=== PATIENT | female | born 1950 | race Hispanic/Latino ===

== ENCOUNTER 2020-10-27 09:17 | Emergency (ER) | payer OTHER ==
[~2020-10-27] VITALS: Ht 160 cm; Wt 78.9 kg
[2020-10-27 09:24] VITALS: BP 156/93
[2020-10-27] MEDS: SUMATRIPTAN SUCCINATE 6 MG/VIAL 0.5ML SQ SCH (11:00)
[2020-10-27] MEDS: SUMATRIPTAN SUCCINATE 6 MG/VIAL 0.5ML SQ ONE (11:18)
[2020-10-27 12:27] VITALS: BP 146/93
[2020-10-27] MEDS ORDERED: SUMA6PEN SQ (12:29)
== END 2020-10-27 12:35 | disposition home or self-care (01) ==
LOC: EDH 09:17
DX: G43.901 Migraine, unspecified, not intractable, with status migrainosus (principal); R11.2 Nausea with vomiting, unspecified
CPT/HCPCS: 96372; 99283; J3030

== ENCOUNTER 2020-11-02 14:42 | Inpatient (IN) | payer OTHER ==
[2020-11-02] VITALS (7 sets, daily range): BP systolic 129–176; BP diastolic 73–97
[~2020-11-02] VITALS: Ht 152.4 cm; Wt 75.6 kg
[~2020-11-02 14:42] MED LIST: SUMA6PEN SQ
[2020-11-02 15:22] LABS: HEMATOCRIT 38.6 % (36-48); MEAN CORPUSCULAR HGB CONC 34.2 g/dL (32.0-36.0); MEAN CORPUSCULAR VOLUME 90.6 fL (79-99); NUCLEATED RED BLOOD CELLS 0.3 % (0.0-0.19); PLATELET COUNT (AUTO) 370 K/uL (130-400); RED BLOOD CELL COUNT(AUTO) 4.26 MIL/uL (4.00-5.50); RED CELL DISTRIBUTION WIDTH 12.7 % (11.0-15.5); WHITE BLOOD COUNT (AUTO) 10.2 K/uL (4.8-10.8)
[2020-11-02 15:34] LABS: CREATININE 0.8 mg/dL (0.5-1.5); POTASSIUM 3.1 mmol/L (3.5-5.1)
[2020-11-02 15:39] LABS: ALBUMIN 2.2 g/dL (3.5-5.0); BILIRUBIN,TOTAL 0.8 mg/dL (0.2-1.0); TOTAL PROTEIN, SERUM 7.3 g/dL (6.0-8.3)
[2020-11-02 15:57] LABS: B-TYPE NATRIURETIC PEPTIDE 32 pg/mL (0-100)
[2020-11-02 16:00] LABS: BAND NEUTROPHILS % (MANUAL) 2 % (0-2); LYMPHOCYTES % (MANUAL) 12 % (22-44); MAN.DIFF COMMENT-IMPRESSION MANUAL DIFFERENTIAL; MONOCYTES % (MANUAL) 7 % (2-9); SEGMENTED NEUTROPHILS % 79 % (40-70)
[2020-11-02 16:01] LABS: PLATELET MORPHOLOGY COMMENT ADEQUATE
[2020-11-02 17:00] LABS: ABG HCO3 25.2 mmol/L (21.0-28.0); ABG OXYGEN SATURATION 91.3 % (95.0-99.0); ABG PCO2 32 mmHg (32-45)
[2020-11-02] MEDS ORDERED: MAG/ALUM/SIMETH 30 ML UDCUP PO PRN (18:00)
[2020-11-02] MEDS ORDERED: ACETAMINOPHEN 325 MG TAB PO PRN (18:00)
[2020-11-02] MEDS ORDERED: NITROGLYCERIN 0.4 MG SL TAB SL PRN (18:00)
[2020-11-02] MEDS ORDERED: ONDANSETRON 4MG INJ IV PRN (18:00)
[2020-11-02] MEDS ORDERED: POTASSIUM CHLORIDE 10% ELIXIR 20 MEQ/15 ML UDCUP PO PRN (18:00)
[2020-11-02] MEDS ORDERED: POTASSIUM CHLORIDE 20MEQ/100ML 100 ML IV PRN (18:00)
[2020-11-02] MEDS ORDERED: DIPHENHYDRAMINE HCL 25 MG CAPSULE PO PRN (18:00)
[2020-11-02] MEDS ORDERED: LACTULOSE 20 GM/30 ML UDCUP PO PRN (18:00)
[2020-11-02] MEDS ORDERED: HYDRALAZINE 20MG/ML VIAL IV PRN (18:00)
[2020-11-02] MEDS ORDERED: ACETAMINOPHEN WITH CODEINE 1 TAB TAB PO PRN (18:00)
[2020-11-02] MEDS ORDERED: GUAIFENESIN-DM 200/20 MG 10 ML PO PRN (18:00)
[2020-11-02] MEDS ORDERED: LIDOCAINE HCL-MPF 1% 2ML VIAL IV PRN (18:00)
[2020-11-02] MEDS: DOXYCYCLINE 100MG+NS 250ML IV SCH (18:00)
[2020-11-02 18:02] LABS: HEMOGLOBIN A1C 7.1 % (4.0-6.0)
[2020-11-02] MEDS ORDERED: PHARMACY COMMUNICATION***REMDESIVIR ORDER MISC SCH (18:30)
[2020-11-02] MEDS ORDERED: ALBUTEROL INHALER 90MCG/INH IH PRN (18:30)
[2020-11-02] MEDS: KCL 20 MEQ ERTAB PO PRN (18:51)
[2020-11-02] MEDS: CEFTRIAXONE 1G VIAL IVP SCH (19:03)
[2020-11-02] MEDS: DEXAMETHASONE SOD PHOSPHATE 4 MG/ML 1ML VIAL IVP SCH (19:03)
[2020-11-02] MEDS ORDERED: COMPOUND IV REFRIGERATED 1 EACH IVSOLN MISC PRN (19:30)
[2020-11-02] MEDS ORDERED: REMDESIVIR (EUA) 520 200 MG in 0.9% NACL 250ML 250 ML IV SCH (20:00)
[2020-11-02] MEDS: FAMOTIDINE 20MG VIAL IV SCH (21:20)
[2020-11-02] MEDS: OSELTAMIVIR PHOSPHATE 75 MG CAP PO SCH (21:20)
[2020-11-03 05:41] VITALS: BP 160/96
[2020-11-03 06:08] LABS: BASOPHILS % (AUTO) 0.3 % (0.0-5.0); HEMATOCRIT 38.6 % (36-48); LYMPHOCYTES % (AUTO) 10.3 % (21.0-51.0); MEAN CORPUSCULAR HEMOGLOBIN 30.9 pg (27.0-33.0); MEAN CORPUSCULAR HGB CONC 33.9 g/dL (32.0-36.0); NEUTROPHILS % (AUTO) 81.1 % (40.0-77.0); PLATELET COUNT (AUTO) 407 K/uL (130-400); RED BLOOD CELL COUNT(AUTO) 4.24 MIL/uL (4.00-5.50); RED CELL DISTRIBUTION WIDTH 12.8 % (11.0-15.5); WHITE BLOOD COUNT (AUTO) 9.2 K/uL (4.8-10.8)
[2020-11-03] MEDS: DOXYCYCLINE 100MG+NS 250ML IV SCH ×2 (06:22→17:39)
[2020-11-03] MEDS: CEFTRIAXONE 1G VIAL IVP SCH ×2 (06:22→17:38)
[2020-11-03 08:00] VITALS: BP 182/82
[2020-11-03] MEDS: ZINC SULFATE 220 CAPSULE PO SCH (08:27)
[2020-11-03] MEDS: OSELTAMIVIR PHOSPHATE 75 MG CAP PO SCH ×2 (08:27→20:16)
[2020-11-03] MEDS: ASCORBIC ACID 500 MG TAB PO SCH (08:27)
[2020-11-03] MEDS: FAMOTIDINE 20MG VIAL IV SCH ×2 (08:27→20:16)
[2020-11-03] MEDS ORDERED: ENOXAPARIN SODIUM 40 MG/0.4 ML SYRINGE SQ SCH (09:00)
[2020-11-03] MEDS ORDERED: AMLODIPINE 5 MG TAB PO ONE (10:30)
[2020-11-03] MEDS ORDERED: IOHEXOL 350 MG/ML 100ML INFUS..BTL IV ONE (10:34)
[2020-11-03] MEDS: AMLODIPINE 5 MG TAB PO SCH (11:33)
[2020-11-03 12:00] VITALS: BP 149/80
[2020-11-03 16:00] VITALS: BP 152/86
[2020-11-03] MEDS: ENOXAPARIN SODIUM 40 MG/0.4 ML SYRINGE SQ SCH ×2 (17:30→20:19)
[2020-11-03] MEDS: KCL 20 MEQ ERTAB PO PRN (17:38)
[2020-11-03] MEDS: DEXAMETHASONE SOD PHOSPHATE 4 MG/ML 1ML VIAL IVP SCH (17:38)
[2020-11-03] MEDS: BARICITINIB (EUA) 2 MG TABLET PO SCH (17:52)
[2020-11-03 20:00] VITALS: BP 162/94
[2020-11-03] MEDS: REMDESIVIR (EUA) 520 100 MG in 0.9% NACL 250ML 250 ML IV SCH (20:17)
[2020-11-04] VITALS (7 sets, daily range): BP systolic 152–177; BP diastolic 77–97
[2020-11-04] MEDS: KCL 20 MEQ ERTAB PO PRN ×2 (00:29→02:18)
[2020-11-04] MEDS: DOXYCYCLINE 100MG+NS 250ML IV SCH ×2 (05:03→17:04)
[2020-11-04] MEDS: CEFTRIAXONE 1G VIAL IVP SCH ×2 (05:03→17:04)
[2020-11-04 05:29] LABS: BASOPHILS % (AUTO) 0.3 % (0.0-5.0); HEMATOCRIT 39.7 % (36-48); LYMPHOCYTES % (AUTO) 13.7 % (21.0-51.0); MEAN CORPUSCULAR HEMOGLOBIN 30.4 pg (27.0-33.0); MEAN CORPUSCULAR HGB CONC 33.5 g/dL (32.0-36.0); MEAN CORPUSCULAR VOLUME 90.6 fL (79-99); MONOCYTES % (AUTO) 3.6 % (3.0-13.0); NEUTROPHILS % (AUTO) 78.1 % (40.0-77.0); PLATELET COUNT (AUTO) 415 K/uL (130-400); RED BLOOD CELL COUNT(AUTO) 4.38 MIL/uL (4.00-5.50); RED CELL DISTRIBUTION WIDTH 12.8 % (11.0-15.5); WHITE BLOOD COUNT (AUTO) 8.8 K/uL (4.8-10.8)
[2020-11-04 05:59] LABS: ALBUMIN 2.2 g/dL (3.5-5.0); BILIRUBIN,TOTAL 0.5 mg/dL (0.2-1.0); CREATININE 0.6 mg/dL (0.5-1.5); POTASSIUM 4.4 mmol/L (3.5-5.1); TOTAL PROTEIN, SERUM 7.2 g/dL (6.0-8.3)
[2020-11-04] MEDS: REMDESIVIR LABS MISC SCH (06:00)
[2020-11-04] MEDS: OSELTAMIVIR PHOSPHATE 75 MG CAP PO SCH ×2 (08:47→20:38)
[2020-11-04] MEDS: ENOXAPARIN SODIUM 40 MG/0.4 ML SYRINGE SQ SCH ×2 (08:47→20:40)
[2020-11-04] MEDS: ZINC SULFATE 220 CAPSULE PO SCH (08:47)
[2020-11-04] MEDS: ASCORBIC ACID 500 MG TAB PO SCH (08:47)
[2020-11-04] MEDS: BARICITINIB (EUA) 2 MG TABLET PO SCH (08:48)
[2020-11-04] MEDS: FAMOTIDINE 20MG VIAL IV SCH ×2 (08:48→20:38)
[2020-11-04] MEDS: AMLODIPINE 5 MG TAB PO SCH (08:48)
[2020-11-04] MEDS: INSULIN HUMULIN R 100 UNIT/ML 3ML SQ SCH ×3 (11:30→20:42)
[2020-11-04] MEDS: DEXAMETHASONE SOD PHOSPHATE 4 MG/ML 1ML VIAL IVP SCH (17:04)
[2020-11-04] MEDS: REMDESIVIR (EUA) 520 100 MG in 0.9% NACL 250ML 250 ML IV SCH (20:39)
[2020-11-05 03:47] VITALS: BP 150/76
[2020-11-05 05:06] LABS: BASOPHILS % (AUTO) 0.3 % (0.0-5.0); LYMPHOCYTES % (AUTO) 10.1 % (21.0-51.0); MEAN CORPUSCULAR HEMOGLOBIN 30.1 pg (27.0-33.0); MEAN CORPUSCULAR HGB CONC 33.3 g/dL (32.0-36.0); MEAN CORPUSCULAR VOLUME 90.5 fL (79-99); NEUTROPHILS % (AUTO) 80.2 % (40.0-77.0); PLATELET COUNT (AUTO) 458 K/uL (130-400); RED BLOOD CELL COUNT(AUTO) 4.42 MIL/uL (4.00-5.50); RED CELL DISTRIBUTION WIDTH 12.8 % (11.0-15.5); WHITE BLOOD COUNT (AUTO) 9.2 K/uL (4.8-10.8)
[2020-11-05] MEDS: DOXYCYCLINE 100MG+NS 250ML IV SCH (05:10)
[2020-11-05] MEDS: CEFTRIAXONE 1G VIAL IVP SCH (05:10)
[2020-11-05 05:22] LABS: ALBUMIN 2.4 g/dL (3.5-5.0); BILIRUBIN,TOTAL 0.5 mg/dL (0.2-1.0); CREATININE 0.6 mg/dL (0.5-1.5); CRP QUANTITATIVE 18.6 mg/L (0.00-9.0); POTASSIUM 4.2 mmol/L (3.5-5.1); TOTAL PROTEIN, SERUM 7.4 g/dL (6.0-8.3)
[2020-11-05] MEDS: REMDESIVIR LABS MISC SCH (05:47)
[2020-11-05] MEDS: INSULIN HUMULIN R 100 UNIT/ML 3ML SQ SCH ×4 (06:25→20:30)
[2020-11-05 08:24] VITALS: BP 159/93
[2020-11-05] MEDS: BARICITINIB (EUA) 2 MG TABLET PO SCH (09:14)
[2020-11-05] MEDS: OSELTAMIVIR PHOSPHATE 75 MG CAP PO SCH ×2 (09:14→20:17)
[2020-11-05] MEDS: ZINC SULFATE 220 CAPSULE PO SCH (09:14)
[2020-11-05] MEDS: ASCORBIC ACID 500 MG TAB PO SCH (09:14)
[2020-11-05] MEDS: FAMOTIDINE 20MG TAB PO SCH ×2 (09:14→20:17)
[2020-11-05] MEDS: AMLODIPINE 5 MG TAB PO SCH ×2 (09:15→11:30)
[2020-11-05] MEDS: ENOXAPARIN SODIUM 40 MG/0.4 ML SYRINGE SQ SCH ×2 (09:15→20:17)
[2020-11-05 11:47] VITALS: BP 162/86
[2020-11-05 16:02] VITALS: BP 153/88
[2020-11-05] MEDS: DEXAMETHASONE SOD PHOSPHATE 4 MG/ML 1ML VIAL IVP SCH (16:36)
[2020-11-05 19:23] VITALS: BP 131/56
[2020-11-05] MEDS: REMDESIVIR (EUA) 520 100 MG in 0.9% NACL 250ML 250 ML IV SCH (20:18)
[2020-11-05 23:33] VITALS: BP 137/76
[2020-11-06 03:44] VITALS: BP 147/83
[2020-11-06 04:59] LABS: BASOPHILS % (AUTO) 0.4 % (0.0-5.0); HEMATOCRIT 42.1 % (36-48); LYMPHOCYTES % (AUTO) 9.9 % (21.0-51.0); MEAN CORPUSCULAR HEMOGLOBIN 30.3 pg (27.0-33.0); MEAN CORPUSCULAR HGB CONC 33.5 g/dL (32.0-36.0); MEAN CORPUSCULAR VOLUME 90.5 fL (79-99); MONOCYTES % (AUTO) 4.8 % (3.0-13.0); NEUTROPHILS % (AUTO) 79.3 % (40.0-77.0); PLATELET COUNT (AUTO) 471 K/uL (130-400); RED BLOOD CELL COUNT(AUTO) 4.65 MIL/uL (4.00-5.50); RED CELL DISTRIBUTION WIDTH 12.8 % (11.0-15.5); WHITE BLOOD COUNT (AUTO) 9.8 K/uL (4.8-10.8)
[2020-11-06 05:28] LABS: ALBUMIN 2.4 g/dL (3.5-5.0); BILIRUBIN,TOTAL 0.5 mg/dL (0.2-1.0); CREATININE 0.7 mg/dL (0.5-1.5); CRP QUANTITATIVE 9.4 mg/L (0.00-9.0); POTASSIUM 4.4 mmol/L (3.5-5.1); TOTAL PROTEIN, SERUM 7.2 g/dL (6.0-8.3)
[2020-11-06] MEDS: REMDESIVIR LABS MISC SCH (05:49)
[2020-11-06] MEDS: INSULIN HUMULIN R 100 UNIT/ML 3ML SQ SCH ×4 (06:24→20:40)
[2020-11-06] MEDS: ASCORBIC ACID 500 MG TAB PO SCH (07:59)
[2020-11-06] MEDS: ENOXAPARIN SODIUM 40 MG/0.4 ML SYRINGE SQ SCH ×2 (07:59→20:34)
[2020-11-06] MEDS: OSELTAMIVIR PHOSPHATE 75 MG CAP PO SCH ×2 (07:59→20:33)
[2020-11-06] MEDS: ZINC SULFATE 220 CAPSULE PO SCH (07:59)
[2020-11-06] MEDS: FAMOTIDINE 20MG TAB PO SCH ×2 (07:59→20:33)
[2020-11-06] MEDS: AMLODIPINE 5 MG TAB PO SCH (07:59)
[2020-11-06] MEDS: BARICITINIB (EUA) 2 MG TABLET PO SCH (08:25)
[2020-11-06 09:06] VITALS: BP 115/92
[2020-11-06 11:30] VITALS: BP 161/90
[2020-11-06] MEDS ORDERED: AMLO-258 PO (14:53)
[2020-11-06] MEDS ORDERED: METF-444 PO (14:53)
[2020-11-06] MEDS ORDERED: APIX2.5T PO (14:53)
[2020-11-06] MEDS ORDERED: GLIP5TAB11 PO (14:53)
[2020-11-06] MEDS ORDERED: PANT40TA55 PO (14:53)
[2020-11-06] MEDS ORDERED: DEXA6TAB PO (14:53)
[2020-11-06] MEDS: DEXAMETHASONE SOD PHOSPHATE 4 MG/ML 1ML VIAL IVP SCH (17:29)
[2020-11-06] MEDS: REMDESIVIR (EUA) 520 100 MG in 0.9% NACL 250ML 250 ML IV SCH (18:09)
[2020-11-06 20:00] VITALS: BP 153/84
[2020-11-20] MEDS ORDERED: AMOX-429 PO (04:37)
== END 2020-11-06 21:30 | disposition home or self-care (01) | DRG 177 ==
LOC: EDH 14:42 → EDHIP 14:43 → 4AH 20:20
PROVIDERS: ADMIT Internal Medicine; ATTEND Internal Medicine
PROC: XW033E5 Introduction of Remdesivir Anti-infective into Peripheral Vein, Percutaneous Approach, New Technology Group 5 (ICD-10-PCS; principal; 2020-11-02)
PROC: XW0DXM6 Introduction of Baricitinib into Mouth and Pharynx, External Approach, New Technology Group 6 (ICD-10-PCS; 2020-11-03)
DX: U07.1 COVID-19 (principal); J12.82 Pneumonia due to coronavirus disease 2019; J10.08 Influenza due to other identified influenza virus with other specified pneumonia; J80 Acute respiratory distress syndrome; E87.3 Alkalosis; D68.69 Other thrombophilia; E87.6 Hypokalemia; R79.89 Other specified abnormal findings of blood chemistry; E66.9 Obesity, unspecified; R53.81 Other malaise; I10 Essential (primary) hypertension; K76.0 Fatty (change of) liver, not elsewhere classified; E11.65 Type 2 diabetes mellitus with hyperglycemia; Z96.659 Presence of unspecified artificial knee joint; Z68.32 Body mass index [BMI] 32.0-32.9, adult; Z91.14 Patient's other noncompliance with medication regimen
CPT/HCPCS: 36415; 36600; 71045; 71270; 76705; 80053; 82803; 82948; 83036; 83880; 84145; 84484; 85025; 85378; 86140; 87040; 87635; 87804; 93005; 93970; 94760; 99291; C9803; G0378; J0360; J0696; J1100; J1650; J1815; J3490; J7050; Q9967